=== PATIENT | female | born 1955 | race Two or more races ===

== ENCOUNTER 2024-06-01 04:03 | Emergency (ER) | payer MEDICARE, BC, SELFPAY ==
[2024-06-01 04:09] VITALS: BP 205/80; PULSE 76; RESP 20; TEMP 36.4; O2SAT 97
--- NOTE | 2024-06-01 04:18 | XR_ITS ---
Examination: CT brain head without contrast. 2-D sagittal coronal reconstructions Date and time of exam: June 01, 2024 0455 hrs. Indications: Headaches nausea vomiting beginning this morning 2 hours ago CTDI: vol (mGy):47.2 DLP: (mGycm):952 Technique: Multiple CT axial sections of the brain have been obtained, 5 mm slice thickness. Contrast has not been administered. 2-D sagittal, coronal reconstructions have been obtained Low dose protocols were performed. One or more of the following dose reduction techniques were used; automated exposure control, adjustment of the mA and/or KV according to patient size, use of iterative reconstruction technique. Findings: No significant ventricular enlargement. Intra-axial or extra-axial hemorrhage density is not seen. No mass effect or midline shift Basal cisterns are not remarkable. Fourth ventricle is midline. Cranial vault intact. Impression: Negative for acute hemorrhage, mass effect or midline shift Advise clinical correlation follow-up accordingly
--- NOTE | 2024-06-01 04:20 | PD.EDRME ---
Rapid Medical Screening Exam RME Arrival date/time: 06/01/24 04:03 68-year-old female with past medical history of hypertension, diabetes, and thyroid disease presents emergency department complaining of severe headache with nausea and vomiting. Chief Complaint: Headache Vital signs: Vital Signs Temperature 97.6 F 06/01/24 04:09 Pulse Rate 76 06/01/24 04:09 Respiratory Rate 20 06/01/24 04:09 Blood Pressure 205/80 H 06/01/24 04:09 Pulse Oximetry (%) 97 06/01/24 04:09 Oxygen Delivery Method Room Air 06/01/24 04:09 Vital signs reviewed by provider: Yes
[2024-06-01] MEDS: METOCLOPRAMIDE INJ 5 MG/ML VIAL 2 ML 10 MG IM (04:32)
[2024-06-01] MEDS: ACETAMINOPHEN 500 MG TABLET 1000 MG PO (04:36)
[2024-06-01 04:50] LABS: Basophils # (Auto) 0.1 Thou/mm3 (0.0-0.2); Basophils % (Auto) 1 % (0-2.5); Eosinophils # (Auto) 0.1 Thou/mm3 (0.0-0.5); Eosinophils % (Auto) 1 % (0-10); Hematocrit 40.6 % (36.0-46.0); Hemoglobin 13.2 g/dL (12.0-16.0); Immature Granulocytes % (Auto) 2 % (0-0); Immature Granulocytes Auto 0.15 Thou/mm3 (0.00-0.00); Lymphocytes % (Auto) 20 % (10-50); Mean Corpuscular HGB Conc 32.5 g/dl (31.0-37.0); Mean Corpuscular Hemoglobin 28.4 pg (25.0-35.0); Mean Corpuscular Volume 88 fL (80-100); Monocytes # (Auto) 0.6 Thou/mm3 (0.0-0.8); Monocytes % (Auto) 6 % (0-12); Neutrophils # (Auto) 7.2 Thou/mm3 (1.8-7.7); Neutrophils % (Auto) 71 % (37-80); Nucleated Red Blood Cell % 0 /100 WBC (0); Platelet Count 186 Thou/mm3 (140-440); RDW Standard Deviation 47.2 fL (36.4-46.3); Red Blood Count 4.64 Miln/mm3 (4.00-5.20); White Blood Count 10.1 Thou/mm3 (3.6-11.0)
--- NOTE | 2024-06-01 05:03 | EKG_ITS ---
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
[2024-06-01 05:04] VITALS: BMI 34.3
[2024-06-01 05:09] VITALS: BP 202/78; PULSE 75; RESP 18; O2SAT 94
[2024-06-01 05:11] VITALS: BP 202/78; PULSE 75
[2024-06-01] MEDS: ONDANSETRON INJ 2 MG/ML INJ 2 ML 4 MG IV (05:11)
[2024-06-01] MEDS: hydrALAZINE INJ 20 MG/ML VIAL 10 MG IV (05:11)
[2024-06-01] MEDS: fentaNYL CIT INJ 50 mCg/ML AMP 2ML IVP (05:22)
[2024-06-01 05:46] LABS: Alanine Aminotransferase 41 U/L (10-49); Albumin, Serum 4.3 gm/dL (3.4-4.8); Albumin/Globulin Ratio 1.4 (1.2-2.2); Alkaline Phosphatase 68 U/L (46-116); Anion Gap 8 (7-16); Aspartate Amino Transferase 23 U/L (0-34); BUN/Creatinine Ratio 28 Ratio (12-20); Bilirubin,Total 0.4 mg/dL (0.3-1.2); Blood Urea Nitrogen 22 mg/dL (9-23); Calcium 9.4 mg/dL (8.3-10.6); Calcium (Corrected) 9.4 mg/dL (8.5-10.1); Carbon Dioxide 29.4 mMol/L (20.0-31.0); Chloride 101 mMol/L (98-107); Creatinine (Component) 0.8 mg/dL (0.6-1.3); Estimated Creatinine Clearance 71.4 mL/min (>60); Glucose 200 mg/dL (74-106); Lipase 29 U/L (12-53); Osmolality,Calculated 284 (275-295); Potassium 3.4 mMol/L (3.4-5.1); Sodium 138 mMol/L (136-145); Total Protein 7.3 gm/dL (5.7-8.2); Troponin I < 0.020 ng/mL (0.0-0.045); eGFR > 60 See Note
--- NOTE | 2024-06-01 05:55 | PRELIM_ITS ---
CT scan of the head without intravenous contrast (axial sections with sagittal and coronal reformats) June 01, 2024 0455 hours Clinical history: Headache with vomiting Comparison: No prior examination is available for comparison. Findings: There is no evidence of intracranial hemorrhage, mass effect or midline shift. There are periventricular white matter hypodensities, compatible with chronic small vessel ischemia. There is atheromatous calcification of the intracranial arteries. There is mild volume loss. The calvarium is unremarkable. There is mild mucosal thickening in bilateral ethmoid , left maxillary and right frontal sinuses. The mastoid air cells and the other visualized paranasal sinuses are clear. Impression: No evidence of intracranial hemorrhage, mass effect or midline shift. Periventricular chronic small vessel ischemia and volume loss. Report Electronically Signed By: Eduard Maciel 06/01/2024 5:54:38 AM [EST]
--- NOTE | 2024-06-01 06:26 | PD.EDABDPN ---
ED Abdominal Pain RME/HPI General Chief Complaint: Headache Stated complaint: HEADACHE,N/V Time seen by provider: 06/01/24 05:09 Arrival date/time: 06/01/24 04:03 RME / HPI RME / HPI narrative: 06/01/24 04:03 68-year-old female with past medical history of hypertension, diabetes, and thyroid disease presents emergency department complaining of severe headache with nausea and vomiting. This section includes all my notes and documentations, including HPI, PE, and ED course. Rufino Flor MD HPI: 68-year-old male here with several days of severe headache and nausea and vomiting and high BP. Has been compliant with her BP medications. No speech or visual impairment. No fever or chills. No limited range of motion of the neck. No loss of power in the arms or legs. No chest pain or shortness of breath. No other complaints. ROS: All negative except as documented in HPI. Physical Exam: General: Alert and oriented. No acute distress. Eyes: Conjunctivae and lids clear. EOMI. PERRL. ENT: No nasal congestion. Pharynx normal. Tympanic membrane normal bilaterally. Neck: Supple. No lymphadenopathy. No JVD. Heart: RRR. Lungs: No respiratory distress. Good air movement. No rhonchi, wheezing, rales. Chest: No tenderness. Abdomen: Soft and nontender. Normal bowel sounds. No distension. No rebound or guarding. Back: No CVA tenderness. Legs: No clubbing, cyanosis, edema. Skin: Warm and dry. Neuro: Alert and oriented X 3. Cranial Nerves II-XII grossly intact. No peripheral motor deficits. Musculoskeletal: All major joints and bones are not tender with no limited ROM. I reviewed all diagnostic test results. My interpretation of the EKG is sinus rhythm with nonspecific ST?T changes. My review of the head CT report is no acute findings. Blood tests unremarkable, including negative negative troponin. At this point, diagnoses include hypertensive urgency. Treatment here included Zofran and Reglan and hydralazine and fentanyl. Significant improvement noted. Recommended more outpatient care. Based on my best medical judgment, made decision no further evaluation or treatment indicated at this time. Patient understands and agrees to the discharge instructions customized and printed, see below. Discharge Instructions from Dr. Flor printed for you: 1. After extensive evaluation, fortunately there is no life-threatening condition such as stroke or brain tumor or heart attack causing your severely high BP. 2. Continue all your home medications, including your BP medications. 3. See your private doctor on 06/02/2024 for recheck and further care. Ask to review all test results and official radiology reports, to make sure you receive all necessary follow-ups and monitoring. 4. Seek immediate medical care with worsening or with any concerns. Rufino Flor MD Related Data Home Medications ?Medication ?Instructions ?Recorded ?Confirmed Levothyroxine * (SYNTHROID *) 25 mcg PO DAILY ##90 02/22/13 06/03/23 Pantoprazole Sodium 40 mg PO QDAY ##90 02/22/13 06/03/23 carvedilol 12.5 mg tablet 12.5 mg PO BID ##180 02/22/13 06/03/23 amlodipine 10 mg tablet 10 mg PO QDAY 02/23/19 06/03/23 biotin 5,000 mcg disintegrating 5,000 mcg PO QDAY 02/23/19 06/03/23 tablet hydralazine 100 mg tablet 100 mg PO TID 02/23/19 06/03/23 loratadine 10 mg tablet (Claritin) 10 mg PO QDAY 02/23/19 06/03/23 vit C,E,zinc,copper-bwfpj2l 250 1 cap PO QDAY 12/22/19 06/03/23 mg-lutein 5 mg-zeaxanthin 1 mg capsule (Ocuvite Adult 50 Plus) apixaban 5 mg tablet (Eliquis) 5 mg QDAY 06/03/23 06/03/23 Held on 06/03/23. Instructions: Resume on 06/04/23. THIS MEDICATION MAY BE RESUMED ON THIS DATE AT YOUR USUAL TIME atorvastatin 20 mg tablet 20 mg PO QPM 06/03/23 06/03/23 gabapentin 100 mg capsule 100 mg PO TID 06/03/23 06/03/23 hydrochlorothiazide 25 mg tablet 25 mg PO BID 06/03/23 06/03/23 ibandronate 3 mg/3 mL intravenous mg IV 06/03/23 syringe insulin glargine 100 30 unit subcut QAM 06/03/23 06/03/23 unit-lixisenatide 33 mcg/mL subcutaneous pen (Soliqua 100/33) mycophenolate sodium 180 mg 1,080 mg PO BID 06/03/23 06/03/23 tablet,delayed release potassium chloride 10 mEq 10 meq PO QDAY 06/03/23 06/03/23 tablet,extended release(part/cryst) prednisone 5 mg tablet 5 mg PO BID 06/03/23 06/03/23 tacrolimus 0.5 mg capsule,extended 0.5 mg PO QDAY 06/03/23 06/03/23 release 24 hr tacrolimus 1 mg capsule,extended 1 mg PO QAM 06/03/23 06/03/23 release 24 hr Allergies Allergy/AdvReac Type Severity Reaction Status Date / Time piperacillin Allergy Severe BIGEMINY Verified 06/01/24 04:12 AND CHEST PAIN tazobactam Allergy Severe BIGEMINEY Verified 06/01/24 04:12 AND CHEST PAIN egg Allergy Intermediate Diarrhea Verified 06/01/24 04:12 hydrocodone Allergy Mild NAUSEA/VOMI Verified 06/01/24 04:12 TING tomato Allergy Mild Flushing Verified 06/01/24 04:12 tramadol Allergy Unknown Verified 06/01/24 04:12 hydromorphone AdvReac Intermediate Palpitation Verified 06/01/24 04:12 s Course Quality Measures none Orders Category Date Time Status EKG (ED ONLY) *Do not use* NOW Care 06/01/24 05:03 Completed Insert NG / OG tube NOW Care 06/01/24 06:[address] head/brain wo con Stat Exams 06/01/24 04:18 Taken EKG (ED Only) Stat Exams 06/01/24 05:03 Draft CBC Stat Lab 06/01/24 04:39 Completed CMP [Comprehensive Metabolic Panel] Stat Lab 06/01/24 04:39 Completed Lipase Stat Lab 06/01/24 04:39 Completed Magnesium Stat Lab 06/01/24 04:39 Completed TSH [Thyroid Stimulating Hormone] Stat Lab 06/01/24 04:39 Completed Troponin I Stat Lab 06/01/24 04:39 Completed Urinalysis, C/S if Indicated Stat Lab 06/01/24 04:19 Ordered Acetaminophen Tab [Tylenol ES Tab] Med 06/01/24 04:19 Discontinued 1,000 mg PO X1 ONE Metoclopramide Inj [Reglan Inj] Med 06/01/24 04:24 Discontinued 10 mg IM X1 ONE Metoclopramide [Reglan] Med 06/01/24 04:19 Discontinued 10 mg PO X1 ONE Ondansetron Inj [Zofran Inj] Med 06/01/24 05:04 Discontinued 4 mg IV X1 ONE cloNIDine HCL [Catapres] Med 06/01/24 06:18 Discontinued 0.3 mg PO X1 ONE fentaNYL INJ [Sublimaze Inj] Med 06/01/24 05:17 Discontinued 50 mcg IVP X1 ONE hydrALAZINE INJ [Apresoline Inj] Med 06/01/24 05:04 Discontinued 10 mg IV X1 ONE Vital Signs Vital signs: Vital Signs Temperature 97.6 F 06/01/24 04:09 Pulse Rate 76 06/01/24 04:09 Respiratory Rate 20 06/01/24 04:09 Blood Pressure 205/80 H 06/01/24 04:09 Pulse Oximetry (%) 97 06/01/24 04:09 Oxygen Delivery Method Room Air 06/01/24 04:09 Abdominal Pain MDM Patient data External records reviewed:: [facility] previous records Clinical information provided by:: patient Social determinants that could affect healthcare access:: none Patient has the following chronic illnesses:: HTN How is presenting disease/condition affected by chronic disease/condition?: exacerbated by Evaluation data The following diagnostics were reviewed and interpreted by me:: lab results, radiology exam(s) and EKG tracing(s) (My interpretation of the EKG is: Sinus rhythm (73 bpm) with right BBB and nonspecific ST-T changes. Rufino Flor MD) Lab and/or radiology exams considered but not ordered:: None Interpretation Summary: Hypertensive urgency Medications / Prescriptions Medications or Prescriptions considered but not ordered:: None Medication administrations:: Medication Administration History Discontinued Medications Acetaminophen (Acetaminophen 500 Mg Tablet) 1,000 mg PO X1 ONE Stop: 06/01/24 04:20 Last Admin: 06/01/24 04:36 Dose: 1,000 mg Documented By: CVL Clonidine (Clonidine Hcl 0.1 Mg Tablet) 0.3 mg PO X1 ONE Stop: 06/01/24 06:19 Last Admin: 06/01/24 06:29 Dose: Not Given Documented By: CB Non-Admin Reason: Cancelled by Provider Fentanyl Citrate (Fentanyl Cit Inj 50 Mcg/Ml Amp 2ml) 50 mcg IVP X1 ONE Stop: 06/01/24 05:18 Last Admin: 06/01/24 05:22 Dose: 50 mcg Documented By: EE Hydralazine HCl (Hydralazine Inj 20 Mg/Ml Vial) 10 mg IV X1 ONE Stop: 06/01/24 05:05 Last Admin: 06/01/24 05:11 Dose: 10 mg Documented By: EE Comments: Metoclopramide HCl (Metoclopramide 5 Mg Tablet) 10 mg PO X1 ONE Stop: 06/01/24 04:20 Last Admin: 06/01/24 05:03 Dose: Not Given Documented By: CINDY Non-Admin Reason: Duplicate Medication on eMAR Metoclopramide HCl (Metoclopramide Inj 5 Mg/Ml Vial 2 Ml) 10 mg IM X1 ONE; Protocol Stop: 06/01/24 04:25 Last Admin: 06/01/24 04:32 Dose: 10 mg Documented By: ROSIOL Ondansetron HCl (Ondansetron Inj 2 Mg/Ml Inj 2 Ml) 4 mg IV X1 ONE; Protocol Stop: 06/01/24 05:05 Last Admin: 06/01/24 05:11 Dose: 4 mg Documented By: CINDY Zhang and Reglan and hydralazine and fentanyl Consultations Consultation(s) initiated? (list below): No Diagnosis Differential diagnosis abdominal pain: other (CVA, brain tumor, OR, migraine, hypertensive urgency) Most likely diagnosis given after review of the tests above:: Hypertensive urgency Admission Indicated Admission indicated?: not indicated Explain why admission is indicated or not indicated:: Admission was not indicated Admission Request Was there a request for admission?: No Disposition Plan Disposition Plan: Discharge Discharge Attestation Discharge Attestation: The patient and all family members were given an opportunity to ask questions and understood the discharge instructions. Discharge instructions specifically effects, indications for sooner follow up or return to the emergency department, and the expected course of current diagnosis. Patient condition: Stable Discharge Plan Plan Patient Disposition: HOME (Self Care) Prescriptions/Referrals Prescriptions/Med Rec: No Action carvedilol 12.5 MG tablet 12.5 mg PO BID Qty: 180 Levothyroxine * (SYNTHROID *) 25 MCG tablet 25 mcg PO DAILY Qty: 90 Pantoprazole Sodium 40 MG TABLET.DR 40 mg PO QDAY Qty: 90 Ocuvite Adult 50 Plus 250-5-1 mg Capsule 1 cap PO QDAY loratadine [Claritin] 10 mg Tablet 10 mg PO QDAY hydralazine 100 mg Tablet 100 mg PO TID biotin 5,000 mcg Tablet,Disintegrating 5,000 mcg PO QDAY amlodipine 10 mg Tablet 10 mg PO QDAY atorvastatin 20 mg Tablet 20 mg PO QPM ibandronate 3 mg/3 mL Syringe IV Eliquis 5 mg Tablet 5 mg QDAY hydrochlorothiazide 25 mg Tablet 25 mg PO BID gabapentin 100 mg Capsule 100 mg PO TID prednisone 5 mg Tablet 5 mg PO BID potassium chloride 10 mEq Tablet,Er Particles/Crystals 10 meq PO QDAY mycophenolate sodium 180 mg Tablet,Delayed Release (Dr/Ec) 1,080 mg PO BID tacrolimus 0.5 mg Capsule,Extended Release 24hr 0.5 mg PO QDAY Rx Instructions: must administer in the morning on an empty stomach, 1 hour before or 2 hours after a meal tacrolimus 1 mg Capsule,Extended Release 24hr 1 mg PO QAM Rx Instructions: must administer in the morning on an empty stomach, 1 hour before or 2 hours after a meal Soliqua 100/33 100 unit-33 mcg/mL Insulin Pen 30 unit SUBCUT QAM Referrals: Wilner Du MD [Primary Care Provider] - In 1 week Problem List Clinical Impression: Hypertensive urgency Patient/Caregiver Discharge Instructions Discharge Activity: activity as tolerated Education Materials: ED Hypertension, Established Additional Instructions: Discharge Instructions from Dr. Flor printed for you: 1. After extensive evaluation, fortunately there is no life-threatening condition such as stroke or brain tumor or heart attack causing your severely high BP. 2. Continue all your home medications, including your BP medications. 3. See your private doctor on 06/02/2024 for recheck and further care. Ask to review all test results and official radiology reports, to make sure you receive all necessary follow-ups and monitoring. 4. Seek immediate medical care with worsening or with any concerns. Print Language: Armenian Stand Alone Forms: Valery Award Info., Patient Portal Info Letter
[2024-06-01 06:27] VITALS: BP 139/63; PULSE 74; RESP 18; TEMP 36.7; O2SAT 99
[2024-06-01 06:43] LABS: Magnesium 1.8 mg/dL (1.6-2.6); Thyroid Stimulating Hormone 3.96 uIU/mL (0.55-4.78)
--- NOTE | 2024-06-01 07:14 | PC.NURSE ---
Pt. here from home to room 18, pt. laying in bed resting, spouse at bedside. Pt. states her GUERRIER is almost gone and she feels so much better than when she first arrived here. Pt. denies any nausea or vomiting at this time. Pt. states this is the first time she has had a GUERRIER like that. No s/s of distress at this time.
[2024-06-01 07:15] VITALS: BP 150/63; PULSE 73; RESP 16; TEMP 36.4; O2SAT 95
[2024-06-01 08:05] VITALS: BP 159/67; PULSE 71; RESP 17; TEMP 36.6; O2SAT 97
== END 2024-06-01 08:11 | disposition home or self-care (01) ==
PROVIDERS: Emergency Provider Emergency Medicine; PCP Family Medicine
DX: I16.0 Hypertensive urgency (principal)
CPT/HCPCS: 36415; 70450; 80053; 81001; 83690; 83735; 84443; 84484; 85025; 93005; 96372; 96374; 99284; J0360; J2405; J2765; J3010; A9270

== ENCOUNTER 2025-03-18 01:49 | Observation (INO) | payer MEDICARE, BC, SELFPAY ==
[2025-03-18] VITALS (14 sets, daily range): BP systolic 107–149; BP diastolic 55–83; PULSE 64–139; RESP 15–95; TEMP 36.5–36.9; O2SAT 93–98; BMI 34.5
--- NOTE | 2025-03-18 01:52 | EKG_ITS ---
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1955 Requested By: ED Temporary Provider Order Number: [id number] Reading MD: ED Temporary Provider Measurements Intervals [place] Rate: 144 P: [place]: QRS: 175 QRSD: 159 T: 7 QT: 331 QTc: 513 Interpretive Statements ATRIAL FIBRILLATION WITH RAPID VENTRICULAR RESPONSE RIGHT BUNDLE BRANCH BLOCK [120+ ms QRS DURATION, UPRIGHT V1, 40+ ms S IN I/aVL/V4/V5/V6] LATERAL MYOCARDIAL INFARCTION , OF INDETERMINATE AGE [40+ ms Q WAVE AND/OR ST/T ABNORMALITY IN I/aVL/V5/V6] Compared to ECG 06/01/2024 05:13:22 Myocardial infarct finding now present Sinus rhythm no longer present Right-axis deviation no longer present /store/S0/[id number].pdf
--- NOTE | 2025-03-18 02:01 | PD.EDARRY ---
ED Arrhythmia Palp. RME/HPI General Chief Complaint: Chest Pain Stated Complaint: CHEST PAIN, HEADACHE Time Seen by Provider: 03/18/25 02:03 Arrival date/time: 03/18/25 01:49 RME / HPI RME / HPI narrative: See [facility] for Dr. Flor's HPI Documentation. Related Data Home Medications ?Medication ?Instructions ?Recorded ?Confirmed Levothyroxine * (SYNTHROID *) 25 mcg PO DAILY ##90 02/22/13 03/18/25 Pantoprazole Sodium 40 mg PO QDAY ##90 02/22/13 03/18/25 carvedilol 12.5 mg tablet 12.5 mg PO BID ##180 02/22/13 03/18/25 amlodipine 10 mg tablet 10 mg PO QDAY 02/23/19 03/18/25 biotin 5,000 mcg disintegrating 5,000 mcg PO QDAY 02/23/19 03/18/25 tablet hydralazine 100 mg tablet 100 mg PO BID 02/23/19 03/18/25 vit C,E,copper,zinc-clsna4n 250 1 cap PO QDAY 12/22/19 06/03/23 mg-lutein 5 mg-zeaxanthin 1 mg capsule (Ocuvite Adult 50 Plus) apixaban 5 mg tablet (Eliquis) 5 mg PO BID 06/03/23 03/18/25 atorvastatin 20 mg tablet 20 mg PO QPM 06/03/23 03/18/25 gabapentin 100 mg capsule 100 mg PO PRN PRN as needed 06/03/23 03/18/25 hydrochlorothiazide 25 mg tablet 25 mg PO QDAY 06/03/23 03/18/25 insulin glargine 100 30 unit subcut QAM 06/03/23 03/18/25 unit-lixisenatide 33 mcg/mL subcutaneous pen (Soliqua ) mycophenolate sodium 180 mg 360 mg PO BID 06/03/23 03/18/25 tablet,delayed release potassium chloride 10 mEq 10 meq PO QDAY 06/03/23 03/18/25 tablet,extended release(part/cryst) prednisone 5 mg tablet 5 mg PO BID 06/03/23 03/18/25 tacrolimus 0.5 mg capsule,extended 0.5 mg PO QAM 06/03/23 03/18/25 release 24 hr tacrolimus 1 mg capsule,extended 1 mg PO QPM 06/03/23 03/18/25 release 24 hr ibandronate 150 mg tablet 150 mg PO .qmonth 03/18/25 03/18/25 Previous Rx's ?Medication ?Instructions ?Recorded magnesium aspart,citrate,oxide 400 mg PO QDAY 1 week #7 caps 03/18/25 Allergies Allergy/AdvReac Type Severity Reaction Status Date / Time piperacillin Allergy Severe BIGEMINY Verified 06/01/24 04:12 AND CHEST PAIN tazobactam Allergy Severe BIGEMINEY Verified 06/01/24 04:12 AND CHEST PAIN egg Allergy Intermediate Diarrhea Verified 06/01/24 04:12 hydrocodone Allergy Mild NAUSEA/VOMI Verified 06/01/24 04:12 TING tomato Allergy Mild Flushing Verified 06/01/24 04:12 tramadol Allergy Unknown Verified 06/01/24 04:12 hydromorphone AdvReac Intermediate Palpitation Verified 06/01/24 04:12 s Review of Systems Review of Systems Systems Reviewed: All systems reviewed, normal except as documented Past Medical History Past Medical History CARDIAC: Positive Cardiac Disorders, Heart Murmur and Hypertension RESPIRATORY: Positive Chronic Obstructive Pulmonary Disease (COPD) (in past), Asthma (in past), Bronchitis (in past) and Pneumonia GASTROINTESTINAL: Positive Gastrointestinal Disorders and Gastroesophageal Reflux Disease (takes medications) GENITOURINARY: Positive Genitourinary Disorders, Renal Disease and Dialysis (in past, had kidney transplant 2019,no longer needs dialysis) MUSCULOSKELETAL: Positive Musculoskeletal Disorders (left knee pain), Arthritis (osteoarthritis) and Fractures ENT: Positive Cataracts ENDOCRINE: Positive Endocrine Disorders, Diabetes Mellitus Type 2 (takes medications) and Hypothyroidism (takes medications) HEMATOLOGIC: Positive Anemia (in past) PSYCHO/SOCIAL: Positive Depression OTHER HISTORY: Positive Hospitalization, Blood Transfusions, Organ Transplant (right kidney transplant in 2020), Chicken Pox, Measles, Mumps and Cancer (basal cell eye lid cancer-removed) Family History FAMILY HISTORY: Positive Family Cardiac Disorders Surgical History SURGICAL: Positive Angiogram, Tonsillectomy and Organ Transplant (right kidney transplant in 2019) ED Exam Narrative Physical exam: See MDM for Dr. Flor's Physical Exam Documentation. Course Quality Measures none Orders Category Date Time Status Bedside COVID-19 Antigen Test NOW Care 03/18/25 02:01 Active Bedside Influenza A&B Antigen Test NOW Care 03/18/25 02:01 Active EKG (ED ONLY) *Do not use* NOW Care 03/18/25 01:52 Completed Saline [Insert IV] NOW Care 03/18/25 02:01 Active Straight [In and Out Catheter] X1 Care 03/18/25 02:01 Active EKG (ED Only) Stat Exams 03/18/25 01:52 Draft Vital Signs Vital signs: Vital Signs Temperature 98.4 F 03/18/25 01:50 Pulse Rate 115 H 03/18/25 01:50 Respiratory Rate 17 03/18/25 01:50 Blood Pressure 107/77 03/18/25 01:50 Pulse Oximetry (%) 98 03/18/25 01:50 Oxygen Delivery Method Room Air 03/18/25 01:50 Arrhythmia/Palpitations MDM Narrative MDM Narrative:: This section includes all my notes and documentations, including HPI, PE, and ED course. 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 PMH includes atrial fibrillation. No other complaints. ROS: All negative except as documented in HPI. Physical Exam: General: Alert and oriented. Appears uncomfortable. Eyes: Conjunctivae and lids clear. ENT: No nasal congestion. Neck: Supple. No JVD. Heart: Irregularly irregular (144 bpm). Lungs: No respiratory distress. Good air movement. No rhonchi, wheezing, rales. Abdomen: Soft and nontender. Skin: Warm and dry. Neuro: Alert and oriented X 3. I reviewed all diagnostic test results: My interpretation of the EKG is atrial fibrillation with RVR (144 bpm). My interpretation of the chest x-ray is NAD. Blood tests remarkable for Mg 1.4 and negative troponin. Covid/Influenza: Negative. Urine specimen pending. At this point, diagnoses include: Atrial Fibrillation with RVR Hypomagnesemia Treatment here FROM ME included: IVF Cardizem 15 mg IV Cardizem drip MgSO4 2 gram IV No significant improvement noted. I discussed the case with our hospitalist. About the presentation and exam and diagnostics and treatments here. And need of further care in the hospital. Will accept patient. Rufino Flor MD Patient data External records reviewed:: [facility] previous records (06/01/24 06:26 Hypertensive urgency.) Clinical information provided by:: patient Social determinants that could affect healthcare access:: none Patient has the following chronic illnesses:: Heart Murmur, Hypertension, Chronic Obstructive Pulmonary Disease, Asthma, Gastroesophageal Reflux Disease, Renal Disease and Dialysis, Osteoarthritis, Cataracts, Diabetes Mellitus Type 2, Hypothyroidism, Anemia, Depression How is presenting disease/condition affected by chronic disease/condition?: exacerbated by Evaluation data The following diagnostics were reviewed and interpreted by me:: lab results, radiology exam(s) and EKG tracing(s) Lab and/or radiology exams considered but not ordered:: None Interpretation Summary: I reviewed all diagnostic test results: My interpretation of the EKG is atrial fibrillation with RVR (144 bpm). My interpretation of the chest x-ray is NAD. Blood tests remarkable for Mg 1.4 and negative troponin. Covid/Influenza: Negative. Urine specimen pending. Medications / Prescriptions Medications or Prescriptions considered but not ordered:: None Medication administrations:: Treatment here FROM ME included: IVF Cardizem 15 mg IV Cardizem drip MgSO4 2 gram IV Consultations Consultation(s) initiated? (list below): Yes Consultation #1 (Physician, Specialty, Details): I discussed the case with our hospitalist. About the presentation and exam and diagnostics and treatments here. And need of further care in the hospital. Will accept patient. Time: 03:50 Diagnosis Differential diagnosis arrhythmia/palpitations: palpitations, anxiety, sinus tachycardia, artial fibrillation, supraventricular tachycardia and ventricular tachycardia Most likely diagnosis given after review of the tests above:: Atrial Fibrillation with RVR Hypomagnesemia Admission Indicated Admission indicated?: indicated Explain why admission is indicated or not indicated:: Atrial Fibrillation with RVR Hypomagnesemia Admission Request Was there a request for admission?: Yes Admission Attestation Admission request attestation: Discussed case with Hospitalist service regarding admission. Discussed patients ED course, exam findings, labs, and radiology results. Agreed to accept the patient for admission. Disposition Plan Disposition Plan: Admit Discharge Plan Plan Patient Disposition: Admit Acute Care w/in Hospital Problem List Clinical Impression: Atrial fibrillation with RVR, Hypomagnesemia Patient/Caregiver Discharge Instructions Discharge Activity: activity as tolerated Other Activity Instructions:: Please follow-up with your PCP within 1 week of discharge. Please follow-up with your project reservoir engineer within 1 week of discharge. You were treated for atrial fibrillation with rapid ventricular rate during this hospitalization. Continue taking with all the medicines as prescribed earlier. -Recommended to return back to emergency department if your symptoms persists or worsens
--- NOTE | 2025-03-18 02:02 | XR_ITS ---
AP upright portable chest film on 03/18/2025 at 2:05 a.m. COMPARISON STUDY: 2023 Clinical indication: Shortness of breath FINDINGS: There is moderate cardiomegaly noted unchanged from the previous chest film. There is pulmonary venous hypertension present in the upper lung zones. There is also loss of clarity of the right heart border suggesting some extremely minimal infiltrate/congestion in the medial segment right middle lobe. The diaphragm is slightly elevated but I suspect that there is minimal additional infiltrate/congestion and/or fluid at the posterior right lung base. There is a horizontal linear density in the left lower lung unchanged from the previous film representing insignificant linear fibrosis. IMPRESSION: 1. 1. Moderately prominent cardiomegaly unchanged from the last film 2. There is mild definite pulmonary venous hypertension, and there are some minimal congestive changes seen in the right lower lung. Overall the film is consistent with mild definite CHF
[2025-03-18] MEDS: DILTIAZEM INJ 5 MG/ML VIAL 5 ML 15 MG IV (02:21)
[2025-03-18] MEDS: DILTIAZEM in D5W 125 MG 125 MG/125 ML BAG IV (02:25)
[2025-03-18 02:38] LABS: Lactate (Lactic Acid) 2.0 mMol/L (0.4-2.0)
[2025-03-18 02:39] LABS: Base Excess, Venous 3 (-3-3); O2 Saturation, Venous 91 % (96-97); PCO2, Venous 29 mmHg (36-56); PO2, Venous 50 mmHg (15-58); pH, Venous 7.54 (7.33-7.66)
[2025-03-18 02:41] LABS: Sed Rate (ESR) 44 mm/hr (0-30)
[2025-03-18 02:44] LABS: Basophils # (Auto) 0.0 Thou/mm3 (0.0-0.2); Basophils % (Auto) 1 % (0-2.5); Eosinophils # (Auto) 0.1 Thou/mm3 (0.0-0.5); Eosinophils % (Auto) 1 % (0-10); Hematocrit 43.2 % (36.0-46.0); Hemoglobin 14.0 g/dL (12.0-16.0); Immature Granulocytes Auto 0.06 Thou/mm3 (0.00-0.00); Lymphocytes # (Auto) 2.4 Thou/mm3 (1.0-4.8); Lymphocytes % (Auto) 29 % (10-50); Mean Corpuscular HGB Conc 32.4 g/dl (31.0-37.0); Mean Corpuscular Hemoglobin 28.3 pg (25.0-35.0); Mean Corpuscular Volume 87 fL (80-100); Monocytes # (Auto) 0.6 Thou/mm3 (0.0-0.8); Monocytes % (Auto) 7 % (0-12); Neutrophils # (Auto) 5.2 Thou/mm3 (1.8-7.7); Neutrophils % (Auto) 61 % (37-80); Nucleated Red Blood Cell # 0.00 Thou/mm3 (0.00-0.00); Nucleated Red Blood Cell % 0 /100 WBC (0); Platelet Count 213 Thou/mm3 (140-440); RDW Standard Deviation 45.2 fL (36.4-46.3); Red Blood Count 4.95 Miln/mm3 (4.00-5.20); White Blood Count 8.4 Thou/mm3 (3.6-11.0)
[2025-03-18 02:54] LABS: INR 1.0 (0.9-1.3); Partial Thromboplastin Time 30.5 Seconds (22.0-36.0); Prothrombin Time 11.0 Seconds (9.0-12.2)
[2025-03-18 03:02] LABS: D-Dimer < 250 ng/mL (<600)
[2025-03-18 03:04] LABS: Alanine Aminotransferase 25 U/L (10-49); Albumin, Serum 4.4 gm/dL (3.4-4.8); Albumin/Globulin Ratio 1.4 (1.2-2.2); Alkaline Phosphatase 68 U/L (46-116); Anion Gap 14 (7-16); Aspartate Amino Transferase 24 U/L (0-34); BUN/Creatinine Ratio 17 Ratio (12-20); Bilirubin,Direct 0.1 mg/dL (0.0-0.3); Bilirubin,Total 0.4 mg/dL (0.3-1.2); Blood Urea Nitrogen 15 mg/dL (9-23); C-Reactive Protein 0.9 mg/dL (0.0-0.9); Calcium 9.3 mg/dL (8.3-10.6); Calcium (Corrected) 9.3 mg/dL (8.5-10.1); Carbon Dioxide 22.7 mMol/L (20.0-31.0); Chloride 103 mMol/L (98-107); Creatinine (Component) 0.9 mg/dL (0.6-1.3); Estimated Creatinine Clearance 60.5 mL/min (>60); Globulin 3.2 gm/dL (2.3-3.5); Glucose 169 mg/dL (74-106); Magnesium 1.4 mg/dL (1.6-2.6); Osmolality,Calculated 284 (275-295); Potassium 3.6 mMol/L (3.4-5.1); Procalcitonin 0.07 ng/ml (0.0-0.49); Sodium 140 mMol/L (136-145); Thyroid Stimulating Hormone 4.07 uIU/mL (0.55-4.78); Total Protein 7.6 gm/dL (5.7-8.2); Troponin I < 0.020 ng/mL (0.0-0.045); eGFR > 60 See Note
[2025-03-18 03:08] LABS: Glucose Estimated Average 148 mg/dL (80-131); Hemoglobin A1C 6.8 % Hgb (4.8-6.0)
[2025-03-18 03:30] LABS: B-Type Natriuretic Peptide 106 pg/mL (0-100)
[2025-03-18] MEDS: Magnesium Sulfate 2 GM Ivpb 2 GM/50 ML BAG IV ×2 (04:17→07:50)
[2025-03-18] MEDS: RINGERS LACTATED 1000 ML 1,000 ML IV (04:18)
[2025-03-18] MEDS: METOPROLOL TARTRATE 25 MG TABLET PO (05:28)
[2025-03-18 05:52] LABS: Collection Type, Urine Clean Catch
--- NOTE | 2025-03-18 05:54 | ESHP_ITS ---
<Statement entered by Bharathi Peralta MD - 03/20/25 19:38> A 69-year-old female with significant past medical history of paroxysmal atrial fibrillation, hypertension, hyperlipidemia, hypothyroidism, type 2 diabetes mellitus, CKD on HD status post right kidney transplant currently on immunosuppression presented to the hospital with chief complaints of chest pressure and lightheadedness since couple of hours on the day of admission. Vitals at the time of admission were significant for heart rate of 115, irregular. Labs are significant for potassium 3.6, magnesium 1.5. EKG showed A-fib with RVR. Urinalysis significant for 73 WBC and 1+ bacteria. Patient was given a dose of diltiazem push and was started on diltiazem drip 5 mg/h in the ED. A dose of metoprolol 25 mg, 1 L LR, potassium and magnesium repleted. Heart rate is controlled to 70 to 80 bpm. Patient is using carvedilol 12.5 mg twice daily, Eliquis 5 mg twice daily for the A-fib and is following Dr. Ferrara. Admitted to the hospital for observation. Restarted her home medications. Will continue to monitor electrolytes. Admitted to telemetry I have personally seen and examined the patient, agree with residents assessment and plan Patient plan of care was discussed with the attending physician, Dr. Lala Peralta, PGY2 Documentation for date of: 03/18/25 HPI History of Present Illness Chief complaint: Chest pressure and lightheadedness History of present illness: This patient is a 69-year-old female with a history of atrial fibrillation, hyperlipidemia, hypertension, type 2 diabetes mellitus, hypothyroidism, and is status post right kidney transplant who presented to [facility] ED on 03/18 for chest pressure and lightheadedness. The patient was admitted under observation for atrial fibrillation with rapid ventricular rate. The patient notes that around midnight, the patient had sudden development of a tightness in her chest when she went to lay in bed, and then noticed difficulty walking due to weakness and lightheadedness when she tried to get up out of bed. Concern, the patient went to the ED to seek help. A similar episode like this has happened about 1 to 2 years ago, and at that time, it was found that the patient had atrial fibrillation with rapid ventricular rate. It was during that hospitalization that the patient became one of Dr. Ferrara's patients. Left heart catheterization on 06/03/2023 was largely unremarkable. Since then, the patient was put on carvedilol and Eliquis for management of her atrial fibrillation and has had an unremarkable course since that hospitalization until 03/18. At time of admission, the patient denies any lightheadedness, headache, changes in vision, chest pain, chest tightness, shortness of breath, abdominal pain, and dysuria. The patient does endorse urinary frequency that has been ongoing for several years and constipation. ED course: Initial vitals on presentation significant for heart rate of 115. EKG in ED shows atrial fibrillation with RVR heart rate 144 and QTc of 513. Initial labs significant for ESR of 44, potassium of 3.6, and magnesium of 1.4. Urinalysis significant for leukocyte esterase positive, 4 RBC, 73 WBC, and 1+ urine bacteria. Patient was given one-time diltiazem push and then started on diltiazem drip in ED. Patient was later given 1 L of LR and metoprolol tartrate 25 mg. Patient's heart rate decreased to 75 on admission. Past Surgical History: Bilateral knee surgery, AV fistula placement, right kidney transplant Current Medication(s): Pending med rec Allergies (w/ Reactions): Eggs Family History: Noncontributory Alcohol Intake: Patient denies Tobacco/Vape Use: Patient denies Other Drug Use: Patient denies Review of Systems Review of Systems Systems Reviewed: All systems reviewed, normal except as documented Exam Vital Signs Temp Pulse Resp BP Pulse Ox O2 Del Method 98.4 F 72 17 125/79 98 Room Air 03/18/25 01:50 03/18/25 05:28 03/18/25 01:50 03/18/25 05:28 03/18/25 01:50 03/18/25 01:50 Narrative Exam Physical Exam: General: Alert, no acute distress. Skin: Warm, dry, intact. Head: Normocephalic, atraumatic. Eye: Injected conjunctiva, PERRL. Throat: Oral mucosa dry. No obvious lesions in oropharynx. Cardiovascular: Regular rate and irregular rhythm, systolic murmur best heard in aortic region, +S1/S2. Respiratory: Lungs are clear to auscultation, respirations unlabored, no crackles, no wheezing. Gastrointestinal: Soft, nontender, non-distended. No guarding or rebound tenderness. Extremities: No edema, no cyanosis, no clubbing. 2+ radial pulse bilaterally, 2+ pedal pulse bilaterally. Neuro: No focal deficits observed. Conversant, moving all extremities. No overt cerebellar signs/incoordination. Psychiatric: Cooperative, appropriate affect. Results: Labs 03/18/25 02:15 03/18/25 02:15 Labs: Short CBC 03/18/25 Range/Units 02:15 WBC 8.4 (3.6-11.0) Thou/mm3 Hgb 14.0 (12.0-16.0) g/dL Hct 43.2 (36.0-46.0) % Plt Count 213 (140-440) Thou/mm3 BMP 03/18/25 02:15 Sodium 140 Potassium 3.6 Chloride 103 Carbon Dioxide 22.7 BUN 15 Creatinine 0.9 Glucose 169 H Calcium 9.3 Cardiac Enzymes 03/18/25 Range/Units 02:15 Troponin I < 0.020 (0.0-0.045) ng/mL Liver Function 03/18/25 Range/Units 02:15 Total Bilirubin 0.4 (0.3-1.2) mg/dL Direct Bilirubin 0.1 (0.0-0.3) mg/dL AST 24 (0-34) U/L ALT 25 (10-49) U/L Alkaline Phosphatase 68 (46-116) U/L Albumin 4.4 (3.4-4.8) gm/dL ABG Interpretation ABG results: 03/18/25 02:15 VBG pH 7.54 VBG pCO2 29 L VBG pO2 50 VBG Base Excess 3 Quality Measures Quality Measures VTE prophylaxis Advance care planning discussed with:: patient and spouse Medications Home Medications and Allergies Home Medications ?Medication ?Instructions ?Recorded ?Confirmed ?Type Levothyroxine * (SYNTHROID *) 25 mcg PO DAILY ##90 03/18/25 History Pantoprazole Sodium 40 mg PO QDAY ##90 02/22/13 03/18/25 History carvedilol 12.5 mg tablet 12.5 mg PO BID ##180 3 03/18/25 History amlodipine 10 mg tablet 10 mg PO QDAY 02/23/1903/18 History biotin 5,000 mcg disintegrating 5,000 mcg PO QDAY 02/0603/18/25 History tablet hydralazine 100 mg tablet 100 mg PO BID 02/23/1903/18 History vit C,E,copper,zinc-gdohk2c 250 1 cap PO QDAY 12/22/19 06/03/23 History mg-lutein 5 mg-zeaxanthin 1 mg capsule (Ocuvite Adult 50 Plus) apixaban 5 mg tablet (Eliquis) 5 mg PO BID 06/03/23 History atorvastatin 20 mg tablet 20 mg PO QPM 06/03/23 History gabapentin 100 mg capsule 100 mg PO PRN PRN as needed 06/03/23 03/18/25 History hydrochlorothiazide 25 mg tablet 25 mg PO QDAY 4 03/18/25 History insulin glargine 100 30 unit subcut QAM 06/03/23 03/18/25 History unit-lixisenatide 33 mcg/mL subcutaneous pen (Soliqua 100/33) mycophenolate sodium 180 mg 360 mg PO BID 06/03/2303/02 History tablet,delayed release potassium chloride 10 mEq 10 meq PO QDAY 06/03/2303/08 History tablet,extended release(part/cryst) prednisone 5 mg tablet 5 mg PO BID 06/03/23 5 History tacrolimus 0.5 mg capsule,extended 0.5 mg PO QAM 06/0303/18/25 History release 24 hr tacrolimus 1 mg capsule,extended 1 mg PO QPM 06/03/23 03/18/25 History release 24 hr ibandronate 150 mg tablet 150 mg PO .qmonth 03/18/25 1 05/19/24 History Allergies Allergy/AdvReac Type Severity Reaction Status Date / Time piperacillin Allergy Severe BIGEMINY Verified 06/01/24 04:12 AND CHEST PAIN tazobactam Allergy Severe BIGEMINEY Verified 06/01/24 04:12 AND CHEST PAIN egg Allergy Intermediate Diarrhea Verified 06/01/24 04:12 hydrocodone Allergy Mild NAUSEA/VOMI Verified 06/01/24 04:12 TING tomato Allergy Mild Flushing Verified 06/01/24 04:12 tramadol Allergy Unknown Verified 06/01/24 04:12 hydromorphone AdvReac Intermediate Palpitation Verified 06/01/24 04:12 s Visit Medications Diltiazem HCl (Diltiazem In D5w 125 Mg) 125 mg in 125 mls @ 5 mls/hr IV .Q24H LENIN Stop: 04/17/25 02:14 Last Admin: 03/18/25 02:25 Dose: 5 mg/hr, 5 mls/hr Magnesium Sulfate (Magnesium Sulfate Ivpb) 2 gm in 50 mls @ 25 mls/hr IV X1 ONE Stop: 03/18/25 06:25 Discontinued Medications Diltiazem HCl (Diltiazem Inj 5 Mg/Ml Vial 5 Ml) 15 mg IV X1 ONE Stop: 03/18/25 02:02 Last Admin: 03/18/25 02:21 Dose: 15 mg Magnesium Sulfate (Magnesium Sulfate Ivpb) 2 gm in 50 mls @ 25 mls/hr IV X1 ONE Stop: 03/18/25 05:16 Last Admin: 03/18/25 04:17 Dose: 25 mls/hr Lactated Ringer's (Lactated Ringers) 1,000 mls @ 1,000 mls/hr IV .Q1H ONE Stop: 03/18/25 04:45 Last Infusion: 03/18/25 05:29 Dose: Infused Metoprolol Tartrate (Metoprolol Tartrate 25 Mg Tablet) 50 mg PO X1 ONE Stop: 03/18/25 04:24 Last Admin: 03/18/25 05:29 Dose: Not Given Metoprolol Tartrate (Metoprolol Tartrate 25 Mg Tablet) 25 mg PO X1 ONE Stop: 03/18/25 04:41 Last Admin: 03/18/25 05:28 Dose: 25 mg Potassium Chloride (Potassium Chloride 20 Meq Tabcr) 40 meq PO X1 ONE Stop: 03/18/25 04:24 Last Admin: 03/18/25 05:29 Dose: 40 meq Assessment & Plan Plan This patient is a 69-year-old female with a history of atrial fibrillation, hyperlipidemia, hypertension, type 2 diabetes mellitus, hypothyroidism, and is status post right kidney transplant who presented to [facility] ED on 03/18 for chest pressure and lightheadedness. The patient was admitted under observation for atrial fibrillation with rapid ventricular rate. 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 The patient was diagnosed about 1 to 2 years ago and had symptoms of chest pressure, lightheadedness, and generalized weakness, all of which were present on 03/18, which brought her to the ED. Diagnostic: EKG 03/18 positive for atrial fibrillation with RVR, heart rate 144 Treatment: Patient has completed diltiazem drip in the ED, which was able to bring her heart rate down to below 110 Metoprolol to tartrate 25 mg x 1 given in ED Resumed the patient's home carvedilol 12.5 mg twice daily and Eliquis 5 mg twice daily Keep potassium above 4 and magnesium above 2 Cardiac diet modification #Asymptomatic bacteriuria #S/p right kidney transplant Patient has a history of CKD and previously required dialysis, but has received a kidney transplant for her right kidney and takes immunosuppressive medication for management of this condition. Urinalysis on admission was noted to be dirty. Patient does endorse a long history of urinary frequency, but this only occurs at night. Diagnostic: Urinalysis in the ED significant for urine leukocyte esterase positive, urine WBC 73, urine RBC 4, and urine bacteria 1+ Urine culture collected, pending Blood cultures collected, pending Treatment: Per IDSA guidelines on asymptomatic bacteriuria recommendation VII, it is not recommended to treat asymptomatic bacteriuria in patients with renal transplants who have had renal transplant surgery over 1 month prior, so we will hold off on antibiotics for now, will reconsider if patient condition deteriorates Renal diet modification #Insulin dependent type 2 diabetes mellitus Patient does have a history of type 2 diabetes mellitus. Per patient history, she does take Toujeo 30 to 40 units daily, and recently started a GLP-1 agonist for her diabetes. Treatment: Insulin degludec 15 units daily Sliding scale insulin Bedside glucose checks ACHS Carbohydrate consistent diet #Hypertension #Hyperlipidemia #Hypothyroidism Patient does have a history of these conditions. Will resume the patient's home medications for these conditions. DVT Prophylaxis: Eliquis GI Prophylaxis: Protonix Bowel: Senokot PRN Diet: Carbohydrate consistent, cardiac, renal [place]: N/A Lines: PIV Antibiotics: N/A Code Status: FULL Reason for Hospitalization: AFib w/ RVR Other Barriers to Discharge: Obs Patient plan of care was discussed with the senior resident Dr. Peralta (PGY-2) and attending physician Dr. Lala Smallwood, PGY1 Attending Provider Attestation/Addendum After examination of the patient and review of the clinical data I feel that this patient needs admission to the hospital for further treatment/evaluation. Plan of care discussed with patient and is in agreement. I Xander Reeves MD, attest that I was physically present for louis portions of evaluation, and examined patient, labs and imagings and plan of care were discussed with IM residents team, and I agree with the findings and plans documented above.
[2025-03-18 06:01] LABS: Amorphous Crystals,Urine Present (Absent); Bacteria,Urine 1+; Bilirubin,Urine Negative (Negative); Blood,Urine Negative (Negative); Clarity,Urine Turbid (Clear/Hazy); Color,Urine Yellow (Lt Yel-Yel); Glucose, Urine Negative (Negative); Hyaline Casts,Urine < 1 /hpf (0-1); Ketones,Urine Negative (Negative); Leukocyte Esterase,Urine Positive (Negative); Nitrite,Urine Negative (Negative); PH,Urine 7.0 (5.0-7.0); Protein,Urine Trace (Neg - Trace); RBC,Urine 4 /hpf (0-3); Specific Gravity,Urine 1.022 (1.001-1.035); Squamous Epithelial Cell,Urine 2 /hpf (0-5); Urobilinogen,Urine Negative mg/dL (0.0-1.0); WBC,Urine 73 /hpf (0-5)
[2025-03-18 06:02] LABS: Culture Indicated,Urine Yes
[2025-03-18] MEDS: LEVOTHYROXINE SODIUM 25 MCG TABLET PO (07:48)
[2025-03-18] MEDS: POTASSIUM CHLORIDE 10% 20 MEQ/15 ML UDC 10 MEQ PO (09:30)
[2025-03-18] MEDS: TACROLIMUS 0.5 MG CAPSULE PO (09:30)
[2025-03-18] MEDS: PANTOPRAZOLE 40 MG TABLET PO (09:31)
[2025-03-18] MEDS: APIXABAN 2.5 MG TABLET 5 MG PO (09:31)
[2025-03-18] MEDS: FUROSEMIDE INJ 10 MG/ML 4ML VIAL 40 MG IVP (13:14)
--- NOTE | 2025-03-18 14:05 | PD.RESDS ---
Planned Discharge Date 03/18/25 DS: Providers Provider Date of admission: 03/18/25 05:54 Primary care physician: Wilner Du MD Admitting Provider: Xander Reeves MD Attending Provider on Admission: Xander Reeves MD Attending Provider on DC: William Sykes MD Discharging Provider: Mackenzie Avery DO DS: Diagnosis Problem List Completed Was Problem List Reviewed/Reconciled?: Yes Hospital Course Hospital Course Hospital course: This patient is a 69-year-old female with a history of atrial fibrillation, hyperlipidemia, hypertension, type 2 diabetes mellitus, hypothyroidism, and is status post right kidney transplant who presented to [facility] ED on 03/18 for chest pressure and lightheadedness. The patient was admitted under observation for atrial fibrillation with rapid ventricular rate. Patient described tightness in her chest when she had been lying in her bed, followed by difficulty walking due to weakness and lightheadedness after getting up. Initial vitals on presentation significant for heart rate of 115. EKG in ED shows atrial fibrillation with RVR heart rate 144 and QTc of 513. Initial labs significant for ESR of 44, potassium of 3.6, and magnesium of 1.4. Urinalysis significant for leukocyte esterase positive, 4 RBC, 73 WBC, and 1+ urine bacteria. Patient was given one-time diltiazem push and then started on diltiazem drip in ED. Patient was later given 1 L of LR and metoprolol tartrate 25 mg. Patient's heart rate decreased to 75 on admission. A similar episode like this had happened about 1 to 2 years ago, and at that time, it was found that the patient had atrial fibrillation with rapid ventricular rate. It was during that hospitalization that the patient became one of Dr. Ferrara's patients. Left heart catheterization on 06/03/2023 was largely unremarkable. Since then, the patient was put on carvedilol and Eliquis for management of her atrial fibrillation and has had an unremarkable course since that hospitalization until 03/18. Chest x-ray showed moderate prominent cardiomegaly. Pulmonary venous hypertension and some minimal congestive changes in the right lower lung, consistent with CHF. Patient was given Lasix IV 40 mg x1. HR remained within normal limits. Chest tightness resolved. Troponins negative, BNP 106. Patient remained stable. Patient home meds including immunosuppressants for kidney transfer were continued in hospital at home dosing. No antibiotics were administered for asymptomatic bacteriuria. At the time of discharge, patient is medically stable and deemed safe to return to his/her previous state of living. Admission Diagnoses: #Atrial fibrillation with RVR #Asymptomatic bacteriuria #Status post right kidney transplant #Insulin-dependent type 2 diabetes mellitus #History of hypertension #History of hyperlipidemia #History of hypothyroidism Discharge Instructions: Please follow-up with your PCP within 1 week of discharge. Please follow-up with your video tape editor within 1 week of discharge. You were treated for atrial fibrillation with rapid ventricular rate during this hospitalization. Continue taking with all the medicines as prescribed earlier. -Recommended to return back to emergency department if your symptoms persists or worsens This case was discussed with my attending physician, Dr. Sykes, and senior resident, Dr Dumas. Even though this this note was carefully revised there may still be minor errors in corrugated sheet material sheeter due to voice recognition software. Mackenzie Avery, PGY I Senior Resident Attestation: I discussed with and supervised the internet assessor physician involved in the care of this patient. I personally saw and examined the patient and discussed the assessment and plan with the entire medicine team, including my attending. I agree with the discharge plan as documented above. Nick Dumas MD PGY3 Internal Medicine Status at Discharge Overall status at discharge: patient is back to baseline Time Spent with Patient Time attestation: Total time spent providing and/or coordinating discharge services: Time spent: Greater than 30 minutes Exam Vital Signs Temp Pulse Resp BP Pulse Ox O2 Del Method 97.8 F 64 15 128/65 94 L Room Air 03/18/25 12:36 03/18/25 13:14 03/18/25 12:36 03/18/25 13:14 03/18/25 12:36 03/18/25 12:36 Narrative Exam General: Alert, no acute distress. Skin: Warm, dry, intact. Head: Normocephalic, atraumatic. Eye: Injected conjunctiva, PERRL. Throat: Oral mucosa dry. No obvious lesions in oropharynx. Cardiovascular: Regular rate and irregular rhythm, systolic murmur best heard in aortic region, +S1/S2. Respiratory: Lungs are clear to auscultation, respirations unlabored, no crackles, no wheezing. Gastrointestinal: Soft, nontender, non-distended. No guarding or rebound tenderness. Extremities: No edema, no cyanosis, no clubbing. 2+ radial pulse bilaterally, 2+ pedal pulse bilaterally. Neuro: No focal deficits observed. Conversant, moving all extremities. No overt cerebellar signs/incoordination. Psychiatric: Cooperative, appropriate affect. Discharge Plan Plan Patient Disposition: HOME (Self Care) Care Plan Goals: Please follow-up with your PCP within 1 week of discharge. Please follow-up with your video tape editor within 1 week of discharge. You were treated for atrial fibrillation with rapid ventricular rate during this hospitalization. Continue taking with all the medicines as prescribed earlier. -Recommended to return back to emergency department if your symptoms persists or worsens Prescriptions/Referrals Prescriptions/Med Rec: Continued carvedilol 12.5 MG tablet 12.5 mg PO BID Qty: 180 Levothyroxine * (SYNTHROID *) 25 MCG tablet 25 mcg PO DAILY Qty: 90 Pantoprazole Sodium 40 MG TABLET.DR 40 mg PO QDAY Qty: 90 Ocuvite Adult 50 Plus 250-5-1 mg Capsule 1 cap PO QDAY hydralazine 100 mg Tablet 100 mg PO BID biotin 5,000 mcg Tablet,Disintegrating 5,000 mcg PO QDAY amlodipine 10 mg Tablet 10 mg PO QDAY atorvastatin 20 mg Tablet 20 mg PO QPM Eliquis 5 mg Tablet 5 mg PO BID hydrochlorothiazide 25 mg Tablet 25 mg PO QDAY gabapentin 100 mg Capsule 100 mg PO PRN PRN (Reason: as needed) prednisone 5 mg Tablet 5 mg PO BID potassium chloride 10 mEq Tablet,Er Particles/Crystals 10 meq PO QDAY mycophenolate sodium 180 mg Tablet,Delayed Release (Dr/Ec) 360 mg PO BID tacrolimus 0.5 mg Capsule,Extended Release 24hr 0.5 mg PO QAM Rx Instructions: must administer in the morning on an empty stomach, 1 hour before or 2 hours after a meal tacrolimus 1 mg Capsule,Extended Release 24hr 1 mg PO QPM Rx Instructions: must administer in the morning on an empty stomach, 1 hour before or 2 hours after a meal Soliqua 100/33 100 unit-33 mcg/mL Insulin Pen 30 unit SUBCUT QAM ibandronate 150 mg tablet 150 mg PO .qmonth Referrals: Wilner Du MD [Primary Care Provider, Family Practice] Patient/Caregiver Discharge Instructions Discharge Activity: activity as tolerated Other Discharge Activity Instructions:: Please follow-up with your PCP within 1 week of discharge. Please follow-up with your video tape editor within 1 week of discharge. You were treated for atrial fibrillation with rapid ventricular rate during this hospitalization. Continue taking with all the medicines as prescribed earlier. -Recommended to return back to emergency department if your symptoms persists or worsens Education Materials: AFL/Afib Print Language: Prydeinig Stand Alone Forms: Valery Award Info., Patient Portal Info Letter, Work/Release Restrictions Discharge Order Discharge Orders: Discharge (Routine); Ordered 03/18/25 Ordered By: Nick Dumas Quality Discharge Quality Measures VTE prophylaxis MD Attestestation MD Attestation I reviewed labs, imaging, EKG, home medications and prior available records. Face to face evaluation was performed by me. I have personally examined the patient and discussed assessment and plan with the IM team. I reviewed the resident note and agree with the plan with exceptions as below. Atrial fibrillation with RVR Status post kidney transplant Vascular congestion Prolonged QTc Hypomagnesemia She is off diltiazem drip Continue home metoprolol Follow-up with cardiology as outpatient Outpatient echocardiogram Resume transplant medications and follow-up with nephrology as outpatient Gave Lasix given the congestion on chest x-ray Repleted magnesium. She has magnesium supplements at home. Monitor magnesium level as outpatient Time spent is 42 minutes. More than 50% of the time was spent on patient education and coordination of care.
--- NOTE | 2025-03-18 16:41 | PC.NURSE ---
Patient has been off of diltiazem drip for approx 3 hours. patient HR at [facility] of 1
--- NOTE | 2025-03-18 16:46 | PC.NURSE ---
Patient GCS 15. Patient has been off of diltiazem drip for approx 3 hours and has maintained and controlled rhythm with [address] Sykes away. Discharge orders in. Patient verbalized understanding of dc paperwork.
== END 2025-03-18 16:50 | disposition home or self-care (01) ==
LOC: SERX 05:27 → SERHOLD 06:46
PROVIDERS: Admitting Provider Student in an Organized Health Care Education/Training Program; Emergency Provider Emergency Medicine; PCP Family Medicine; Visit Provider Student in an Organized Health Care Education/Training Program
DX: I48.91 Unspecified atrial fibrillation (principal); R82.71 Bacteriuria; Z94.0 Kidney transplant status; E11.9 Type 2 diabetes mellitus without complications; E03.9 Hypothyroidism, unspecified; E78.5 Hyperlipidemia, unspecified; I11.9 Hypertensive heart disease without heart failure; I27.20 Pulmonary hypertension, unspecified
CPT/HCPCS: 36415; 71045; 80053; 80061; 81001; 82248; 82803; 83036; 83605; 83735; 83880; 84100; 84145; 84443; 84484; 85025; 85379; 85610; 85652; 85730; 86140; 87040; 87077; 87086; 87186; 87502; 87635; 93005; 96365; 96366; 96375; 99283; G0378; J1938; J3475; J3490; J7120; J7507; J7512; A9270